=== PATIENT | female | born 1980 | race Caucasian/White ===

== ENCOUNTER 2017-06-24 12:38 | Emergency (ER) | payer OTHER ==
[~2017-06-24] VITALS: Ht 165.1 cm; Wt 108.0 kg
[2017-06-24 12:50] VITALS: Ht 165.1 cm; Wt 108.0 kg
[2017-06-24] MEDS ORDERED: METOCLOPRAMIDE 10 MG TAB PO ONE (15:30)
[2017-06-24] MEDS ORDERED: ACETAMINOPHEN 500 MG TAB PO STA (15:30)
[2017-06-24 15:47] LABS: URINE BLOOD (Dip) POC Trace-lysed (NEGATIVE)
--- NOTE | 2017-06-24 16:17 | RADRPT ---
PROCEDURE: CT Head without. CLINICAL INDICATION: Dizziness and vertigo. TECHNIQUE: The study was performed utilizing a multi-slice, multidetector CT scanner. Direct spira l 1 mm axial sections were obtained through the head without the use of intravenous contrast materia l. 1 or more of the following dose reduction techniques were utilized: Automated exposure control, adjustment of the mA and/or kV according to patient's size, iterative reconstruction technique. Co chema and sagittal reformations were obtained. The images were reviewed on a PACS workstation. RADIATION DOSE: CTDIvol: 44.6 mGyDLP: 720.2 mGy-cm COMPARISON: No prior studies are available for comparison. FINDINGS: There is no intracranial hemorrhage, extra-axial fluid collection, mass lesion, midline shift or hyd rocephalus. The ventricles, sulci and cisterns are within normal limits. The white matter is unrem arkable. The cam-white matter differentiation is preserved. The basal cisterns are patent. The m idline structures are intact. The orbits, calvarium and extracranial soft tissues are normal in zach earance. The visualized paranasal sinuses, mastoid air cells and middle ear cavities are normally ae rated. IMPRESSION: 1. No acute intracranial abnormality. No intracranial hemorrhage, extra-axial fluid collection, ma ss lesion or hydrocephalous. RPTAT: HGAS .Abdi Varghese MD, MD Date Time Electronically viewed and signed by .Abdi Varghese MD, MD on 06/24/2017 16:17 .S/
[2017-06-24] MEDS ORDERED: IBUP-1542 PO (16:23)
--- NOTE | 2017-06-24 16:58 | ERD ---
ER Documentation Chief Complaint Date/Time DATE: 06/24/17 TIME: 16:53 Chief Complaint had an episode of mccrary w/confusion 06/08 been dizzy/shaky since then with mccrary HPI 37-year-old female with a dental abscess and root canal procedure planned for tomorrow and history of migraines presents to the emergency department complaining of constant moderate headache that feels like a tight band for the past week and a half. Patient also states that with nausea and lightheaded. She denies any vomiting, diarrhea, abdominal pain. Patient states that she has had an episode with confusion on the while she was driving but it has resolved. Patient states that she has a root canal procedure planned for tomorrow and has been taking clindamycin for the past week. ROS All systems reviewed and are negative except as per history of present illness. Medications Home Meds Active Scripts Ibuprofen* (Motrin*) 600 Mg Tab, 600 MG PO Q6H Y for PAIN AND OR ELEVATED TEMP, #30 TAB Prov:RO CALDERON PA-C 06/24/17 Allergies Allergies: Coded Allergies: No Known Allergy (Unverified , 06/24/17) PMhx/Soc Medical and Surgical Hx: pt denies Medical Hx, pt denies Surgical Hx Hx Alcohol Use: Yes (social) Hx Substance Use: No Hx Tobacco Use: No Smoking Status: Never smoker Physical Exam Vitals Vital Signs Date Time Temp Pulse Resp B/P Pulse Ox O2 Delivery O2 Flow Rate FiO2 06/24/17 12:50 108.0 86 20 141/74 97 Physical Exam GENERAL: well-developed/well-nourished, in no apparent distress, non-toxic appearing HENT: NC/AT, bilateral tympanic membrane is normal with good cone of light, nares patent, oropharynx clear without exudates EYES: Conjunctiva normal, PERRLA, EOMI, no nystagmus noted NECK: Supple, no lymphadenopathy PULM: CTA bilaterally, no rales, rhonchi, or wheezing heard CV: Normal S1S2, RRR, good capillary refill GI: Soft, non-distended, normal bowel sounds, non-tender BACK: No midline tenderness, no masses, No CVAT EXT: No clubbing, cyanosis, or edema NEURO: Alert and orientated to person, place, and time. CN II-IIX intact. Gait and coordination were normal. 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 and within normal limits SKIN: Intact, normal turgor PSYCH: Normal mood and mentation, patient denied SI Results 24 hrs Laboratory Tests Test 06/24/17 15:54 06/24/17 16:02 Bedside Urine pH (LAB) 5.5 Bedside Urine Protein (LAB) Trace Bedside Urine Glucose (UA) Negative Bedside Urine Ketones (LAB) 2+ Bedside Urine Blood Trace-lysed Bedside Urine Nitrite (LAB) Negative Bedside Urine Leukocyte Esterase (L Negative Bedside Glucose 77mg/dL Current Medications Medications (Trade) Dose Ordered Sig/Mike Route PRN Reason Start Time Stop Time Status Last Admin Dose Admin Acetaminophen (Tylenol Tab) 1,000 mg ONCE STAT PO 06/24/17 15:30 06/24/17 15:32 DC 06/24/17 15:45 Metoclopramide HCl (Reglan) 10 mg ONCE ONCE PO 06/24/17 15:30 06/24/17 15:32 DC 06/24/17 15:45 Procedures/MDM This is a 37-year-old female presenting to the emergency department complaining of headache, lightheadedness for the past week and a half likely due to tension headache, anxiety. Patient appears well, ambulating well and has a normal neurological exam. Patient is stable to be discharged home to follow-up with primary care physician. No evidence of stroke, subarachnoid hemorrhage. CT of the head was done did not show any acute pathology. He did not show any evidence of STEMI. Accu-Chek was within normal limits. EKG: read and signed off by myself and Dr. Lopez Rate/Rhythm: [Normal Sinus Rhythm with sinus arrhythmia] QRS, ST, T-waves: [No changes consistent w/ acute ischemia] Impression: [No evidence of ischemia or arrhythmia] Departure Diagnosis: Primary Impression: Headache Additional Impression: Dizziness Condition: Stable Patient Instructions: Headache, Tension, Headache, Migraine (Classical) Referrals: NO PRIMARY,CARE PHYSICIAN Additional Instructions: FOLLOW UP WITH YOUR PRIMARY CARE PHYSICIAN TOMORROW.Return to this facility if you are not improving as expected. Take all medicines as directed. Return to this facility if you are not improving as expected. RO CALDERON PA-C Jun 24, 2017 16:58
== END 2017-06-24 16:33 | disposition home or self-care (01) ==
LOC: FTE 12:38
DX: R51 Headache (principal); R42 Dizziness and giddiness
CPT/HCPCS: 70450; 81003; 82962; 93005